=== PATIENT | male | born 1960 | race Caucasian/White ===

== ENCOUNTER → 2018-07-01 | Outpatient (CLI) | payer OTHER ==
[~2018-07-01] MED LIST: ACETAMINOPHEN325 M1 PO; ASPIR 8181 MG PO; ASPIRIN EC81 M1 PO; ASPIRIN325; BRILINTA90 MG PO; CLARITIN10 MG; COLACE100 MG PO; CRESTOR10 MG PO; DECONGESTANT NA15 ML NASAL; EFFIENT10 MG PO; GLIPIZIDE ER10 MG PO; GLIPIZIDE ER5 MG PO; GLUCOPHAGE XR500 MG PO; GLUCOPHAGE500 MG PO; HYDROCODON-ACE1 EAC7 PO; IBUPROFEN 200200 M1 PO; IBUPROFEN200 M2; IMDUR 30 MG TAB30 M1; IMDUR 30 MG TAB30 M1 PO; IMDUR 60 MG TAB60 M1 PO; INVOKANA100 MG PO; LIPITOR 20 MG T20 M1 PO; LISINOPRIL2.5 MG PO; LIVALO2 MG PO; METFORMIN HCL500 MG PO; METOPROLOL SUCC25 M1 PO; NASONEX17 GM; NITROGLYCERIN0.4 MG SL; ONDANSETRON HCL4 M3 PO; PLAVIX 75 MG TA75 M1 PO; RANEXA500 MG PO; SIMVASTATIN40 MG; TOPROL XL25 MG PO; TOPROL XL50 MG; TYLENOL325 MG PO; VICTOZA0.6 MG/0.1 SUBQ; WAL-FEX ALLERG180 MG PO; ZOFRAN4 MG PO
== END ==
LOC: M.MRI 11:26
DX: M25.512 Pain in left shoulder (principal); G89.29 Other chronic pain

== ENCOUNTER 2018-10-31 18:50 | Inpatient (IN) | payer OTHER ==
[~2018-10-31] VITALS: Ht 180.3 cm; Wt 94.8 kg
[~2018-10-31 18:50] MED LIST changes: -IBUPROFEN 200200 M1 PO
[2018-10-31 18:54] VITALS: BP 149/89
[2018-10-31] MEDS ORDERED: ZOLOFT50 MG PO (19:03)
[2018-10-31] MEDS ORDERED: 24HR ALLERGY REL5 MG PO (19:03)
[2018-10-31] MEDS ORDERED: ANTIVERT25 MG PO (19:03)
[2018-10-31] MEDS ORDERED: FLOMAX0.4 MG PO (19:04)
[2018-10-31] MEDS ORDERED: PIOGLITAZONE15 MG PO (19:04)
[2018-10-31] MEDS ORDERED: TRAMADOL 50 MG50 MG PO (19:05)
[2018-10-31] MEDS ORDERED: MEDOLOR PAK 2.1 EACH TOP (19:06)
[2018-10-31 19:47] LABS: ABSOLUTE LYMPHOCYTES 3.5 thou/uL (0.8-5.3); ABSOLUTE MONOCYTES 0.6 thou/uL (0.0-1.2); ABSOLUTE NEUTROPHILS 3.6 thou/uL (1.6-8.1); BASOPHILS 0.5 %; EOSINOPHILS 0.5 %; HEMOGLOBIN 14.8 gm/dL (14.0-18.0); LYMPHOCYTES 45.1 %; MCH 28.5 pg (26.0-34.0); MCV 86.6 fL (80.0-100.0); MONOCYTES 8.1 %; MPV 8.5 fl. (7.2-11.1); NUCLEATED RBCS 0 /100WBC; PLATELET COUNT* 317 thou/uL (150-400); POLYS 45.8 %; RDW-CV 13.4 % (10.5-14.5); WBC 7.8 thou/uL (4.0-11.0)
[2018-10-31 19:57] LABS: ANION GAP 13 mmol/L (7-16); BUN 28 mg/dL (7-18); CHLORIDE 94 mmol/L (98-107); CO2 26 mmol/L (21-32); CREATININE 1.2 mg/dL (0.6-1.3); GLUCOSE 459 mg/dL (70-99); POTASSIUM 4.1 mmol/L (3.5-5.1); SODIUM 133 mmol/L (136-145)
[2018-10-31 20:07] LABS: ALBUMIN 4.1 g/dL (3.4-5.0); ALKALINE PHOSPHATASE 103 U/L (46-116); LIPASE 131 U/L (73-393); MAGNESIUM 1.7 mg/dL (1.8-2.4); NT-PRO BRAIN NAT PEPTIDE 99 pg/mL (<300); SGOT 9 U/L (15-37); SGPT 20 U/L (30-65); TOTAL BILIRUBIN 0.4 mg/dL (<0.1-1.0); TOTAL PROTEIN 8.1 g/dL (6.4-8.2); TROPONIN-I LEVEL <0.06 ng/mL (<0.06)
[2018-10-31 20:14] LABS: URINE BILIRUBIN NEGATIVE (Negative); URINE BLOOD NEGATIVE (Negative); URINE CLARITY CLEAR; URINE COLOR YELLOW; URINE GLUCOSE-RANDOM 3+ (Negative); URINE KETONES NEGATIVE (Negative); URINE LEUKOCYTES-REFLEX NEGATIVE (Negative); URINE NITRITE-REFLEX NEGATIVE (Negative); URINE PROTEIN NEGATIVE (Negative); URINE UROBILINOGEN 0.2 E.U./dl (0.2-1.0)
[2018-10-31 20:15] LABS: BE -2.1 mmol/L (-2 to +3); PCO2 37.9 mmHg (35.0-45.0); PO2 72.1 mmHg (75.0-100.0)
[2018-10-31 23:18] VITALS: BP 139/70
[2018-11-01 04:00] VITALS: BP 123/70
[2018-11-01 08:09] VITALS: BP 143/78
[2018-11-01 13:44] VITALS: BP 127/83
--- NOTE | 2018-11-01 14:28 | EKG ---
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 : 1960 Requested By: Joellen Teresa Order Number: [id number] MD: Hesham Phoenix Measurements Intervals [place] Rate: 73 P: 23 [place]: 155 QRS: 32 QRSD: 99 T: 75 QT: 412 QTc: 454 Interpretive Statements Sinus rhythm Abnormal inferior Q waves Minimal ST depression, lateral leads Compared to ECG 07/22/2014 08:05:50 Inferior Q waves now present Q waves now present ST (T wave) deviation still present Electronically Signed On 11-01-2018 14:28:44 CDT by Hesham Phoenix [email or web address] <ELECTRONICALLY SIGNED> By: Hesham Phoenix MD, FAC 11/01/18 1428 185 Hesham Phoenix MD, FAC /EPI
--- NOTE | 2018-11-01 16:29 | 2DMMODE ---
[place] [address] 2 D/M-MODE ECHOCARDIOGRAM Name: JENNIKELSI Longoria Room: [address] Cora Mott#: [id number] Admission: 10/31/18 Attend Phys: Pj Shetty Discharge: Date of : 60 Date of Service: 11/01/18 1628 Report #: [id number] THIS REPORT FOR: //name// APPROVED REPORT Study performed: 11/01/2018 14:39:19 EXAM: Comprehensive 2D, Doppler, and color-flow Echocardiogram Patient Location: In-Patient Room #: 202 Status: routine BSA: 2.10 HR: 73 bpm BP: 143/78 mmHg Rhythm: NSR Other Information Study Quality: Good Indications Dyspnea CAD 2D Dimensions IVSd: 10.45 (7-11mm) LVOT Diam: 21.93 (18-24mm) LVDd: 50.78 mm PWd: 11.47 (7-11mm) Ascending Ao: 29.49 (22-36mm) LVDs: 36.37 (25-40mm) Aortic Root: 37.89 mm Volumes Left Atrial Volume (Systole) LA ESV Index: 23.30 mL/m2 Aortic Valve AoV Peak Preet.: 1.08 m/s AO Peak Gr.: 4.63 mmHg LVOT Max P.86 mmHg AO Mean Gr.: 2.75 mmHg LVOT Mean P.68 mmHg LVOT Max V: 0.98 m/s AO V2 VTI: 18.46 cm LVOT Mean V: 0.59 m/s ILYA (VTI): 3.57 cm2 LVOT V1 VTI: 17.46 cm Mitral Valve E/A Ratio: 0.81 MV Decel. Time: 244.30 [place] [address] 2 D/M-MODE ECHOCARDIOGRAM Name: KELSI ARTEAGA Room: [address] MJustinRJustin#: [id number] Admission: 10/31/18 Attend Phys: Pj Shetty Discharge: Date of : 60 Date of Service: 11/01/18 1628 Report #: [id number] MV E Max Preet.: 0.48 m/s MV PHT: 70.85 ms MVA (PHT): 3.11 cm2 TDI E/Lateral E': 6.86 E/Medial E': 8.00 Medial E' Preet.: 0.06 m/s Lateral E' Preet.: 0.07 m/s Pulmonary Valve PV Peak Preet.: 0.94 m/s PV Peak Gr.: 3.52 mmHg Tricuspid Valve RAP Estimate: 5.00 mmHg TR Peak Gr.: 21.53 mmHg RVSP: 26.00 mmHg PA Pressure: 26.00 mmHg Left Ventricle The left ventricle is normal size. There is normal LV segmental wall motion. There is normal left ventricular wall thickness. Left ventricular systolic function is normal. The left ventricular ejection fraction is within the normal range. LVEF is 50%. Grade I - abnormal relaxation pattern. Right Ventricle The right ventricle is normal size. The right ventricular systolic function is normal. Atria The left atrium size is normal. The right atrium size is normal. Aortic Valve The aortic valve is normal in structure. No aortic regurgitation is present. There is no aortic valvular stenosis. Mitral Valve The mitral valve is normal in structure. Trace mitral regurgitation. No evidence of mitral valve stenosis. Tricuspid Valve The tricuspid valve is normal in structure. Trace tricuspid regurgitation. No pulmonary hypertension. Pulmonic Valve The pulmonary valve is normal in [place] [address] 2 D/M-MODE ECHOCARDIOGRAM Name: KELSI ARTEAGA Room: [address]#: [id number] Admission: 10/31/18 Attend Phys: Pj Shetty Discharge: Date of : 60 Date of Service: 11/01/18 1628 Report #: [id number] regurgitation. Great Vessels The aortic root is normal in size. IVC is normal in size and collapses >50% with inspiration. Pericardium There is no pericardial effusion. <Conclusion> LVEF is 50%. There is normal LV segmental wall motion. Grade I - abnormal relaxation pattern. There is no aortic valvular stenosis. No aortic regurgitation is present. Trace mitral regurgitation. Trace tricuspid regurgitation. No pulmonary hypertension. <ELECTRONICALLY SIGNED> By: Hesham Phoenix MD, FACC 11/01/18 1628 1628 1628 Hesham Phoenix MD, FACC /INF
[2018-11-01 18:10] LABS: GLYCOHEMOGLOBIN (HGB A1C) 11.7 % (4.8-5.6)
[2018-11-01 20:00] VITALS: BP 129/79
[2018-11-02] VITALS (7 sets, daily range): BP systolic 122–153; BP diastolic 75–93
[2018-11-02 05:10] LABS: ABSOLUTE EOSINOPHILS 0.1 thou/uL (0.0-0.7); ABSOLUTE LYMPHOCYTES 2.8 thou/uL (0.8-5.3); ABSOLUTE MONOCYTES 0.4 thou/uL (0.0-1.2); ABSOLUTE NEUTROPHILS 1.8 thou/uL (1.6-8.1); BASOPHILS 0.8 %; EOSINOPHILS 1.4 %; HEMOGLOBIN 13.5 gm/dL (14.0-18.0); LYMPHOCYTES 54.6 %; MCH 30.6 pg (26.0-34.0); MCHC 35.7 g/dL (28.0-37.0); MCV 85.9 fL (80.0-100.0); MONOCYTES 7.1 %; MPV 8.4 fl. (7.2-11.1); NUCLEATED RBCS 0 /100WBC; POLYS 36.1 %; RBC 4.42 mil/uL (4.50-6.00); RDW-CV 13.4 % (10.5-14.5); WBC 5.1 thou/uL (4.0-11.0)
[2018-11-02 05:12] LABS: ANION GAP 6 mmol/L (7-16); BUN 21 mg/dL (7-18); CALCIUM 8.9 mg/dL (8.5-10.1); CHLORIDE 103 mmol/L (98-107); CHOLESTEROL 253 mg/dL (<200); CO2 27 mmol/L (21-32); CREATININE 0.8 mg/dL (0.6-1.3); GLUCOSE 198 mg/dL (70-99); HDL CHOLESTEROL 43 mg/dL (>40); LDL CHOLESTEROL 187 mg/dL (<100); MAGNESIUM 1.4 mg/dL (1.8-2.4); POTASSIUM 4.1 mmol/L (3.5-5.1); SODIUM 136 mmol/L (136-145); TC:HDL 5.9 Ratio (Not establshd); TRIGLYCERIDE 115 mg/dL (<150); VLDL 23 mg/dL (<40)
[2018-11-02 05:15] LABS: PLATELET COUNT* 230 thou/uL (150-400)
[2018-11-02 05:16] LABS: SERUM ASSESSMENT Clear
--- NOTE | 2018-11-02 16:57 | CARDNUC ---
[place] [address] CARDIAC NUCLEAR IMAGING REPORT Name: JENNIKELSI Longoria Room: [address] MAngel#: [id number] Admission: 10/31/18 Attend Phys: Pj Shetty Discharge: Date of : 60 Date of Service: 11/02/18 1657 Report #: [id number] THIS REPORT FOR: //name// APPROVED REPORT Study performed: 11/02/2018 10:01:14 Exam: Nuclear Stress Test Patient Location: In-Patient Room #: 202 Stress Tech: Radha Coles Stress Nurse: Susanna Ackerman RN Ht: 5 ft 10 in Wt: 210 lbs BSA: 2.13 m2 BMI: 30.12 Medical History Medical History: Arrhythmia, CAD s/p stent, CAD s/p CABG, CKD, Diabetic Insulin, Fatigue, HTN, Hyperlipidemia, SOB, Weakness. Medications: Insulin, Imdur, Atorvastatin, ASA 81 Mg, Plavix, Metoprolol, NTG, ACTOS. Allergies: Codeine. Cardiac Risk Factors: Age, Diabetes (insulin), FHX of CAD, HTN, Hyperlipidemia, SOB, , Past Smoker, CKD. Previous Cardiac Procedures: CABG, PCI Pretest Chest Pain Characteristics: No chest pain Exercise History: Indeterminate Physical Disabilities: Dizziness, Lightheaded, Weak, Fatigue. Meds Held (24 hrs): Metoprolol, Imdur, NTG. Stress Test Details Stress Test: Pharmacologic stress testing performed using 0.4 mg of regadenoson per 5 mL given IV over 10 seconds. Reason for pharmacologic stress test: Dizziness, Lightheaded, Fatigue, Weakness.. HR Resting HR: 68 bpm Max Heart Rate (APMHR): 162 bpm Max HR Achieved: 91 bpm Target HR (85% APMHR): 137 bpm % of APMHR: 56 Recovery HR: 79 bpm HR response to stress: Normal HR response to stress BP Resting BP: 139/84 [place] [address] CARDIAC NUCLEAR IMAGING REPORT Name: KELSI ARTEAGA Room: [address]#: [id number] Admission: 10/31/18 Attend Phys: Pj Shetty Discharge: Date of : 60 Date of Service: 11/02/18 1657 Report #: [id number] Max BP: 114/84 mmHg BP response to stress: Normal blood pressure response to stress. ECG Resting ECG: nsr Stress ECG: nsr ST Change: none Arrhythmia: none Recovery ECG: nsr Recovery ST Change: none Recovery Arrhythmia: none Clinical Reason for Termination: Completed protocol Stress Symptoms: Dyspnea. Exercise duration: 00 min 00 sec Exercise capacity: 1.00 METs Nurse Comments 58 year old inpatient presented with recent HX of acute dizziness, lightheadedness, increased fatigue/weakness and SOA. Patient tolerated sitting Lexiscan well. Recovery unremarkable with PO caffeine. Patient escorted via wheelchair by staff to Nuclear Medicine for images. Patient was stable with no complaints at that time. Stress ECG Conclusion negative ecg NM EXAM: Myocardial Perfusion REST/STRESS Imaging Protocol: Rest Tc-99m/Stress Tc-99m 1 day Resting Data Rest SPECT myocardial perfusion imaging was performed in supine position 30 minutes following the intravenous injection of 10.8 mCi of Tc-99m Sestamibi. Time of rest injection: 08:00 The images were gated to evaluate regional wall motion and calculate left ventricular ejection fraction. Administration Route: IV Administration Site: Left Arm Pharmacologic Stress Pharmacologic stress test was performed by injecting Regadenoson 0.4 mg IV push followed by the intravenous injection of 33.7 [place] [address] CARDIAC NUCLEAR IMAGING REPORT Name: KELSI ARTEAGA Room: [address] Pantera#: [id number] Admission: 10/31/18 Attend Phys: Pj Shetty Discharge: Date of : 60 Date of Service: 11/02/18 1657 Report #: [id number] Tc-99m Sestamibi. Time of stress injection: 10:05 Administration Route: IV Administration Site: Left Arm Heart Rate at time of stress injection: 61 bpm. Gated Stress SPECT was performed 40 minutes after stress injection. The images were gated to evaluate regional wall motion and calculate left ventricular ejection fraction. Prone imaging was performed. Study Quality Study: Fair Artifact: Mild Increased GI uptake Lung Uptake: Normal Study Data At rest, the left ventricular ejection fraction was 61%.. Post stress, the left ventricular ejection was 72%.. SSS: 9 SRS: 7 SDS: 2 Perfusion Review of SPECT images reveals a small, mild intensity defect in the apex. At rest the defect normalizes, it is very small, mild intensity. No other reversible defects are seen. Images were reviewed using [employer]. Wall Motion normal all segments, abnormal septal motion compatible with prior sternotomy Nuclear Conclusion ECG Findings: negative for ischemia Clinical Findings: negative for ischemia Nuclear Findings: equivocal Exercise Capacity: not assessed Left Ventricular Function: normal Risk Study: low This study has a small reversible apical defect. Possibly normal variant following his prior CABG. No high risk [place] [address] CARDIAC NUCLEAR IMAGING REPORT Name: KELSI ARTEAGA Room: [address] M.R.#: [id number] Admission: 10/31/18 Attend Phys: Pj Shetty Discharge: Date of : 60 Date of Service: 11/02/18 1657 Report #: [id number] <Conclusion> negative ecg <ELECTRONICALLY SIGNED> By: Hesham Phoenix MD, [facility] 11/02/18 1657 56 56 Hesham Phoenix MD, [facility] /INF
[2018-11-03] VITALS: BP 123/74
[2018-11-03 04:00] VITALS: BP 115/70
[2018-11-03 08:15] VITALS: BP 135/79
[2018-11-03] MEDS ORDERED: ATORVASTATIN CA40 MG PO ×2 (10:41→13:25)
[2018-11-03 11:57] VITALS: BP 114/67
[2018-11-03] MEDS ORDERED: LANTUS100 UNIT/M SUBQ (13:25)
[2018-11-03] MEDS ORDERED: VENTOLIN HFA 1818 GM INH (13:26)
[2018-11-03] MEDS ORDERED: IBUPROFEN 200200 M1 PO (13:59)
== END 2018-11-03 14:23 | disposition home or self-care (01) | DRG 637 ==
LOC: M.ERS 18:50 → M.2W 22:43 → M.TBA-ER 22:43 → M.2W 22:43
PROVIDERS: Family Medicine; Personal Emergency Response Attendant; ADMIT Family Medicine
DX: E11.65 Type 2 diabetes mellitus with hyperglycemia (principal); E11.00 Type 2 diabetes mellitus with hyperosmolarity without nonketotic hyperglycemic-hyperosmolar coma (NKHHC); E87.2 Acidosis; E86.0 Dehydration; T38.0X5A Adverse effect of glucocorticoids and synthetic analogues, initial encounter; I25.10 Atherosclerotic heart disease of native coronary artery without angina pectoris; N18.2 Chronic kidney disease, stage 2 (mild); E11.22 Type 2 diabetes mellitus with diabetic chronic kidney disease; G47.33 Obstructive sleep apnea (adult) (pediatric); E78.5 Hyperlipidemia, unspecified; Z95.1 Presence of aortocoronary bypass graft; Z98.52 Vasectomy status; Z79.4 Long term (current) use of insulin; Z95.5 Presence of coronary angioplasty implant and graft; Z88.6 Allergy status to analgesic agent; Z87.891 Personal history of nicotine dependence; Z79.82 Long term (current) use of aspirin; Z79.899 Other long term (current) drug therapy; Y92.89 Other specified places as the place of occurrence of the external cause

== ENCOUNTER 2018-11-16 09:15 | Observation (INO) | payer OTHER ==
[2018-11-16] VITALS (11 sets, daily range): BP systolic 118–136; BP diastolic 71–87
[~2018-11-16] VITALS: Ht 180.3 cm; Wt 96.2 kg
[~2018-11-16 09:15] MED LIST changes: +24HR ALLERGY REL5 MG PO; +ANTIVERT25 MG PO; +ATORVASTATIN CA40 MG PO; +FLOMAX0.4 MG PO; +IBUPROFEN 200200 M1 PO; +LANTUS100 UNIT/M SUBQ; +MEDOLOR PAK 2.1 EACH TOP; +PIOGLITAZONE15 MG PO; +TRAMADOL 50 MG50 MG PO; +VENTOLIN HFA 1818 GM INH; +ZOLOFT50 MG PO
[2018-11-16 10:01] LABS: HEMATOCRIT 41.5 % (42.0-52.0); HEMOGLOBIN 14.2 gm/dL (14.0-18.0); MCH 28.9 pg (26.0-34.0); MCHC 34.1 g/dL (28.0-37.0); MCV 84.8 fL (80.0-100.0); MPV 8.1 fl. (7.2-11.1); RBC 4.89 mil/uL (4.50-6.00); WBC 5.9 thou/uL (4.0-11.0)
[2018-11-16 10:20] LABS: ANION GAP 10 mmol/L (7-16); BUN 17 mg/dL (7-18); CALCIUM 9.3 mg/dL (8.5-10.1); CHLORIDE 104 mmol/L (98-107); CO2 26 mmol/L (21-32); CREATININE 0.9 mg/dL (0.6-1.3); GLUCOSE 182 mg/dL (70-99); SODIUM 140 mmol/L (136-145)
[2018-11-16 10:21] LABS: APTT 27.6 Seconds (25.0-31.3); PROTIME 9.8 Seconds (9.20-11.50)
[2018-11-16 10:25] LABS: ALBUMIN 3.9 g/dL (3.4-5.0); ALKALINE PHOSPHATASE 82 U/L (46-116); SGOT 12 U/L (15-37); SGPT 24 U/L (30-65); TOTAL BILIRUBIN 0.4 mg/dL (<0.1-1.0); TOTAL PROTEIN 7.3 g/dL (6.4-8.2)
[2018-11-16 10:26] LABS: SERUM ASSESSMENT Clear
--- NOTE | 2018-11-16 10:37 | EKG ---
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: : 1960 Requested By: Alex Glasgow Order Number: [id number] Pavan MD: Alex Glasgow Measurements Intervals [place] Rate: 71 P: 10 [place]: 172 QRS: 36 QRSD: 95 T: 44 QT: 420 QTc: 457 Interpretive Statements Sinus rhythm Compared to ECG 10/31/2018 18:56:47 Inferior Q waves no longer present Q waves no longer present ST (T wave) deviation no longer present Electronically Signed On 11-16-2018 10:36:58 CDT by Alex Glasgow [email or web address] <ELECTRONICALLY SIGNED> By: Alex Glasgow MD, [facility] 11/16/18 1036 1012 101 Alex Glasgow MD, [facility] /EPI
[2018-11-16 10:57] LABS: CHOLESTEROL 276 mg/dL (<200); HDL CHOLESTEROL 46 mg/dL (>40); LDL CHOLESTEROL 184 mg/dL (<100); TRIGLYCERIDE 231 mg/dL (<150); VLDL 46 mg/dL (<40)
--- NOTE | 2018-11-16 15:59 | EKG ---
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
--- NOTE | 2018-11-16 16:56 | CARD ---
[address] [address] CARDIAC CATH REPORT Name: KELSI ARTEAGA Room: [address] Cora MAngel#: [id number] Admission: 11/16/18 Attend Phys: Alex Glasgow MD, Discharge: Date of : 60 Report #: [id number] THIS REPORT FOR: //name// APPROVED REPORT Study performed: 11/16/2018 10:07:10 Patient Details Patient Status: Out-Patient Room #: The patient is a 58 year-old male Event Personnel Alex Glasgow Motor Overhauler, Dipika Guzman RN RN, Donnie Montaño ASSEMBLY SUPERVISOR Monitor, David Cid ASSEMBLY SUPERVISOR Scrub Procedures Performed LISA Place w/wo Plasty Single CIRC Atherectomy w/wo Plasty Sgl CIRCDES Revasc Graft Single RCA; left heart catheterization left ventriculography and selective coronary artery artery as well as aortocoronary saphenous vein bypass graft study LO graft study Indication Unstable angina Risk Factors Hypercholesterolemia, Hypertension Previous Procedures/Diagnoses Previous PCI, Previous GA Admission/Lab Medications/Medications given during procedure Aspirin, Platelet Aff. Inhib., Angiomax bolus and infusion Procedure Narrative The patient was brought electively to the Cardiac Catheterization Laboratory and was prepped and draped in a sterile manner. The right femoral was infiltrated with 2% Lidocaine subcutaneous anesthesia. A Roll 6 FR sheath was inserted into the right femoral artery. Coronary angiography was performed using coronary diagnostic catheters. The right coronary system was accessed and visualized with a Diagnostic JR4 catheter. The left coronary system was accessed and visualized with a Diagnostic JL4 catheter. The left ventricle was accessed and visualized with a Diagnostic Straight Pigtail catheter. Left ventricular/Aortic Valve [place] [address] CARDIAC CATH REPORT Name: KELSI ARTEAGA Room: [address] Cora Mott#: [id number] Admission: 11/16/18 Attend Phys: Alex Glasgow MD, Discharge: Date of : 60 Report #: [id number] pullback. Left ventriculogram was performed in HAZEL projection. Pre-demployment femoral angiogram was performed . Closure device was deployed with a Fr Angioseal STS 6Fr. The patient tolerated the procedure well and there were no complications associated with the procedure. There was no hematoma. Intraoperative Conscious Sedation Sedation start time: 10:39 Case end Time: 12:21 Fentanyl 100 mcg Versed 6 mg Fluoro Time: 36.0 minutes Dose: DAP [id number] cGycm2 4855 mGy Contrast Type and Amount: Visipaque 400 ml Coronary Angiography The patient's coronary anatomy is right dominant. [place] Artery Percent Stenosis #1 widely patent LO graft to the LAD with 40% distal LAD narrowing #2 patent saphenous vein graft the right coronary artery with 75% proximal graft narrowing and 90% distal anastomotic narrowing extending into the posterolateral branch Diagnostic Cath Left Main 0% narrowing LAD 100% proximal LAD occlusion Circumflex 40% proximal circumflex narrowing with focal 80% first marginal narrowing in its midportion Right Coronary 90% proximal with 100% mid vessel occlusion Left Ventriculography The left ventricle is normal in size with normal contractility. The left ventricular ejection fraction is estimated to be 60%. Left ventricular wall motion abnormalities are not present. There is no mitral insufficiency. Hemodynamics The aortic pressure is 102/65 mmHg with a mean of 81 mmHg. The left ventricular pressure is 99/1 mmHg with a mean of mmHg. The left ventricular end diastolic pressure is 6 mmHg. There was no gradient across the aortic valve upon pullback[place] [address] CARDIAC CATH REPORT Name: KELSI ARTEAGA Room: [address] M.R.#: [id number] Admission: 11/16/18 Attend Phys: Alex Glasgow MD, Discharge: Date of : 60 Report #: [id number] Anticoagulation was achieved with Angiomax. Patient was preloaded with Angiomax IV 14 ml. Percutaneous coronary intervention was performed on the distal Anastamosis of the saphenous vein graft the right coronary artery extending into the posterolateral branch. The lesion stenosis prior to intervention was 90% with ESTUARDO 3 flow. A 6Fr AR 1 Guide Catheter was used to engage the ostium. A IG: ProwaterFlex 180CM Interventional Guidewire was used to cross the lesion. BALLOON DILATION A Balloon catheter Mini Trek RX 2.0 X 12 was inserted and inflated up to 8.00atm for 14seconds. Additional Inflation: 12.00atm for 13seconds. Additional Inflation: 12.00atm for 14seconds. STENT DEPLOYMENT A drug-eluting stent Esteban RX Stent 2.0X26mm was inserted and inflated up to 8.00atm for 20seconds. Additional Inflation: 10.00atm for 13seconds. Additional Inflation: 12.00atm for 12seconds. POST STENT DEPLOYMENT BALLOON DILATION A Balloon catheter NC Trek RX 2.25x12 was inserted and inflated up to 12.00atm for 7seconds. Additional Inflation: 16.00atm for 12seconds. Additional Inflation: 17.00atm for 9seconds. Final angiography reveals 0 % stenosis with ESTUARDO 3 flow. PCI Technique Lesion 2 Percutaneous Coronary Intervention was performed on the Ostium Graft to RCA. Patient was preloaded with Angiomax IV 14 ml. The lesion stenosis prior to intervention was 75% with ESTUARDO 3 flow. A 6Fr AR 1 Guide Catheter was used to engage the ostium. A IG: ProwaterFlex 180CM Interventional Guidewire was used to cross the lesion. Stent Deployment A drug-eluting stent Mercedes RX Stent 3.5X15mm was inserted and inflated up to 18.00atm for 14seconds. Additional Inflation: 20.00atm for 9seconds. Final angiography reveals 10 % stenosis with ESTUARDO 3 flow. PCI Technique Lesion 3 Percutaneous Coronary Intervention was performed on the first obtuse marginal branch segment. Patient was preloaded with Angiomax IV 14 ml. Percutaneous coronary intervention was performed on the first obtuse marginal branch segment. The lesion stenosis prior to intervention was 80% with ESTUARDO 3 flow. A 6FR XB 3.5 100CM Guide Catheter was used to engage the ostium. A IG: ProwaterFlex 180CM [address] [address] CARDIAC CATH REPORT Name: KELSI ARTEAGA Room: [address] Cora Mott#: [id number] Admission: 11/16/18 Attend Phys: Alex Glasgow MD, Discharge: Date of : 60 Report #: [id number] Interventional Guidewire was used to cross the lesion. Balloon Dilation A Balloon catheter NC Euphora 2.75x8 was inserted and inflated up to 17.00atm for 29seconds. Additional Inflation: 20.00atm for 22seconds. Final angiography reveals 10 % stenosis with ESTUARDO 3 flow. Comments Atherectomy/atherotomy was performed on the first marginal branch with inflation of a 2.5 x 10 mm angiosculpt balloon to 18-20 carlito BALLOON DILATION A Balloon catheter AngioSculpt PTCA 2.5 X 10mm was inserted and inflated up to 20atm for 46seconds. Additional Inflation: 22atm for 44seconds. Additional Inflation: 22atm for 36seconds. PCI Technique Lesion Percutaneous coronary intervention was performed on the first obtuse marginal branch segment. BALLOON DILATION A Balloon catheter NC Trek RX 3.0 X 8 was inserted and inflated up to 18atm for 16seconds. Additional Inflation: 22atm for 18seconds. STENT DEPLOYMENT A drug-eluting stent Xience Cata 2.14L19oa was inserted and inflated up to 18atm for 16seconds. Additional Inflation: 20atm for 11seconds. POST STENT DEPLOYMENT BALLOON DILATION A Balloon catheter NC Trek RX 3.0 X 8 was inserted and inflated up to 18atm for 13seconds. Additional Inflation: 22atm for 16seconds. Conclusion #1 significant multivessel coronary artery disease characterized by the following: A 100% proximal LAD occlusion B 40% proximal circumflex narrowing with 80% narrowing of the [facility] [address] [place] [address] CARDIAC CATH REPORT Name: KELSI ARTEAGA Room: [address] M.RJustin#: [id number] Admission: 11/16/18 Attend Phys: Alex Glasgow MD, Discharge: Date of : 60 Report #: [id number] midportion of the first marginal branch within the stented segment C dominant right coronary artery 100% occluded in its midportion #2 graft study characterized by the following: A widely patent LO graft to the LAD with 40% distal LAD narrowing B patent saphenous vein graft the right coronary artery with 75% proximal graft narrowing and 90% distal anastomotic narrowing extending into the posterolateral branch #3 normal left-sided hemodynamics study #4 successful angioplasty with stenting of the distal anastomotic site of the vein graft the right coronary artery with 0% residual narrowing following stent deployment #5 successful stenting of the proximal portion of the vein graft the right coronary artery with 10% residual narrowing #6 successful angioplasty atherectomy/atherotomy and stenting of the first marginal branch of the circumflex with 10% residual narrowing and ESTUARDO-3 flow the distal vessel Recommendations Cardiac Risk Reduction Program Aggressive Medical Therapy Medications Administered Aspirin (any) Prasugrel <ELECTRONICALLY SIGNED> By: Alex Glasgow MD, [facility] 11/16/18 1655 1655 1655Jokayleigh Glasgow MD, FACC /INF
--- NOTE | 2018-11-16 18:44 | NUR ---
PT ADMITTED FROM ECONOMIC DEVELOPMENT COORDINATOR AT APPROXIMATELY 1252. DRESSING TO RIGHT GROIN C/D/I. NO HEMATOMA PRESENT. VSS. TRACING SR ON MONITOR. PT ON RA. PT CURRENTLY OFF OF BEDREST, UP ADLIB. HOURLY ROUNDING FOR PT SAFETY. CLWR.
[2018-11-17] VITALS: BP 131/75
[2018-11-17 03:51] LABS: HEMATOCRIT 35.6 % (42.0-52.0); MCH 28.9 pg (26.0-34.0); MCHC 33.7 g/dL (28.0-37.0); MCV 85.8 fL (80.0-100.0); MPV 8.2 fl. (7.2-11.1); RBC 4.15 mil/uL (4.50-6.00); RDW-CV 13.1 % (10.5-14.5); WBC 5.1 thou/uL (4.0-11.0)
[2018-11-17 04:00] VITALS: BP 138/72
[2018-11-17 04:09] LABS: ALBUMIN 3.1 g/dL (3.4-5.0); CALCIUM 8.3 mg/dL (8.5-10.1); CREATININE 0.8 mg/dL (0.6-1.3); POTASSIUM 3.8 mmol/L (3.5-5.1); TOTAL BILIRUBIN 0.3 mg/dL (<0.1-1.0); TROPONIN-I LEVEL 0.09 ng/mL (<0.06)
--- NOTE | 2018-11-17 06:56 | NUR ---
RECEIVED REPORT AND ASSUMED CARE AT 1900. VSS. CARDIAC MONITORING IN PLACE. PT REPORTS CHRONIC SHOULDER PAIN, PRN MEDICATION ADMIN PER ORDERS. ASSESSMENT COMPELTED CHARTED. BED LOCKED IN LOWEST POSITION, CALL LIGHT WITHIN REACH, PT UP AD NATALIYA IN ROOM, ON RA. HOURLY ROUNDING COMPLETED , ALL NEEDS MET.R GROIN CATH SITE INTACT, NO SIGN OF HEMATOMA
[2018-11-17 07:00] VITALS: BP 143/91
--- NOTE | 2018-11-17 08:04 | NUR ---
INITAL ASSESSMENT COMPLETED CHARTED. VSS. TRACING SR WITH 1ST DEGREE BLOCK ON MONITOR. PT DENIES CHEST PAIN OR SOA. DRESSING TO RIGHT GROIN C/D/I, NO HEMATOMA PRESENT. HOURLY ROUNDING FOR PT SAFETY. CLWR.
--- NOTE | 2018-11-17 09:44 | NUR ---
Nutrition: Consult received for "spouse wanting heart smart classes." Spoke with who stated pt has never had nutrition classes before. Pt is now signed up for our cardiac rehab program. Pt and are anticipating the nutrition classes offered through our program, which I will be teaching. They are looking forward to starting the program. Will follow up with them in cardiac rehab.
[2018-11-17 09:51] VITALS: BP 133/87
[2018-11-17 10:08] VITALS: BP 133/87
[2018-11-17] MEDS ORDERED: EFFIENT10 MG PO (10:08)
[2018-11-17] MEDS ORDERED: LIPITOR40 MG PO (10:15)
--- NOTE | 2018-11-17 17:11 | EKG ---
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
--- NOTE | 2018-11-17 17:15 | EKG ---
[place] [address] ELECTROCARDIOGRAM REPORT Name: JENNIKELSI Longoria Room: [address]#: [id number] Admission: 11/16/18 Attend Phys: Alex Glasgow MD, Discharge: 11/17/18 Date of : 60 Report #: [id number] THIS REPORT FOR: //name// [facility] Test Date: 2018-11-17 Test Time: 03:04:18 Pat Name: KELSI ARTEAGA Department: Room: [facility] Gender: M [employer]: [id number] : 1960 Requested By: Alex Glasgow Order Number: [id number] Pavan MD: Benjamin Arteaga Measurements Intervals [place] Rate: 69 P: 37 [place]: 194 QRS: 19 QRSD: 91 T: 63 QT: 386 QTc: 414 Interpretive Statements Sinus rhythm Compared to ECG 11/16/2018 13:12:02 ST (T wave) deviation no longer present Electronically Signed On 11-17-2018 17:15:21 CDT by Benjamin Arteaga [email or web address] <ELECTRONICALLY SIGNED> By: Benjamin Arteaga MD, [facility] 11/17/18 [id number] Benjamin Arteaga MD, [facility] /EPI
--- NOTE | 2018-11-18 11:07 | D ---
[address] [address] DISCHARGE SUMMARY Name: KELSI ARTEAGA Room: [address] Cora Mott#: [id number] Admission: 11/16/18 Attend Phys: Alex Glasgow MD, Discharge: 11/17/18 Date of : 60 Report #: [id number] THIS REPORT FOR: //name// CC: Alex Majano Shah DATE OF SERVICE: 11/17/2018 FINAL DISCHARGE DIAGNOSES: 1. Unstable angina. 2. Coronary artery disease. 3. Status post remote coronary artery bypass grafting. 4. Status post percutaneous coronary intervention of the vein graft to the right coronary artery and [place] circumflex. 5. Hypertension. 6. Hyperlipidemia. 7. Type 2 diabetes. PROCEDURES: On 11/16/2018 - left heart catheterization, left ventriculography, selective coronary arteriography, aortocoronary saphenous vein bypass graft study, LO graft study and percutaneous coronary intervention of the vein graft to the right coronary artery and [place] circumflex. HOSPITAL COURSE: The patient is a pleasant 58-year-old male with complex coronary artery disease status post remote coronary artery bypass grafting. He presented to our office and saw a nurse practitioner with a pattern of angina, which was clinically unstable. In that context, he recommended proceed with cardiac catheterization, which was undertaken on 11/16/2018. That study revealed a widely patent LO graft to the LAD and a patent graft to the right coronary artery with 75% proximal and 90% distal anastomotic stenosis. There was also 80-90% stenosis in the prominent first marginal branch of the circumflex. I performed percutaneous coronary intervention on the vein graft, deploying drug-eluting stents in the proximal and distal portion of the vein graft in the mid circumflex with a good angiographic result. The patient did well post-procedurally with an inconsequential rise in troponin to 0.09. Laboratory on 11/17/2018 revealed sodium 141, potassium 3.8, BUN 13 and creatinine 0.8. Hemoglobin 12.0, white blood cell count 5000 and platelets 156,000. The patient ambulated in the hallways without difficulty. He was discharged to home on 11/17/2018 on the following medications: Levocetirizine 5 mg at bedtime, aspirin 81 mg daily, Effient or prasugrel 10 mg daily, Flomax 0.4 mg daily, glipizide 10 mg b.i.d., Glucophage 1000 [place] b.i.d. [place] [address] DISCHARGE SUMMARY Name: KELSI ARTEAGA [address] [id number] Admission: 11/16/18 Attend Phys: Alex Glasgow MD, Discharge: 11/17/18 Date of : 60 Report #: [id number] 11/18/2018, Imdur 120 mg daily, Lantus insulin 10 units subcutaneously daily, Lipitor 40 mg daily, lidocaine patch topically at 09:00 daily, p.r.n. sublingual nitroglycerin, Toprol-XL 25 mg b.i.d., Zoloft 50 mg daily, Tylenol 325 mg as needed, Ultram 50 mg every 6 hours as needed and Ventolin inhaler every 4 hours as needed. The patient is scheduled to see our nurse practitioner, Yecenia Barclay on 12/01/2018 at 10:30 hours and myself on 12/27/2018 at 08:00. <ELECTRONICALLY SIGNED> By: Alex Glasgow MD, [facility] 11/18/18 [id number] Glasgow MD, FAC /nt
== END 2018-11-17 11:53 | disposition home or self-care (01) ==
LOC: M.CL 09:15 → M.2W 11:19 → M.TBA-CV 11:19 → M.2W 12:57
PROVIDERS: ADMIT Internal Medicine
DX: I25.110 Atherosclerotic heart disease of native coronary artery with unstable angina pectoris (principal); I10 Essential (primary) hypertension; E78.5 Hyperlipidemia, unspecified; E11.9 Type 2 diabetes mellitus without complications; E78.00 Pure hypercholesterolemia, unspecified; Z98.61 Coronary angioplasty status

== ENCOUNTER 2019-01-01 13:17 | Emergency (ER) | payer OTHER ==
[~2019-01-01] VITALS: Ht 180.3 cm; Wt 90.7 kg
[~2019-01-01 13:17] MED LIST changes: +LIPITOR40 MG PO
[2019-01-01] MEDS ORDERED: PLAVIX 75 MG TA75 M1 PO (13:31)
[2019-01-01 14:34] VITALS: BP 166/88
== END 2019-01-01 14:35 | disposition home or self-care (01) ==
LOC: M.ERS 13:17
DX: K42.9 Umbilical hernia without obstruction or gangrene (principal); I10 Essential (primary) hypertension; E11.9 Type 2 diabetes mellitus without complications; E78.00 Pure hypercholesterolemia, unspecified; Z88.6 Allergy status to analgesic agent; Z87.891 Personal history of nicotine dependence

== ENCOUNTER 2020-01-29 15:03 | Emergency (ER) | payer OTHER ==
[~2020-01-29] VITALS: Ht 180.3 cm; Wt 93.0 kg
[2020-01-29] MEDS ORDERED: OZEMPIC1 MG/0.75 SUBQ (15:15)
[2020-01-29] MEDS ORDERED: NORCO 5-325 TA1 EAC2 PO (16:35)
[2020-01-29 17:02] VITALS: BP 127/81
== END 2020-01-29 17:03 | disposition home or self-care (01) ==
LOC: M.ERS 15:03
DX: S22.42XA Multiple fractures of ribs, left side, initial encounter for closed fracture (principal); I10 Essential (primary) hypertension; E11.9 Type 2 diabetes mellitus without complications; E78.00 Pure hypercholesterolemia, unspecified; Z95.5 Presence of coronary angioplasty implant and graft; Z98.52 Vasectomy status; Z87.891 Personal history of nicotine dependence; Z88.6 Allergy status to analgesic agent; W10.8XXA Fall (on) (from) other stairs and steps, initial encounter; Y93.89 Activity, other specified; Y92.89 Other specified places as the place of occurrence of the external cause; Y99.8 Other external cause status